=== PATIENT | male | born 1980 | race Caucasian/White ===

== ENCOUNTER 2016-11-05 13:57 | Emergency (ER) | payer SELFPAY ==
[~2016-11-05] VITALS: Ht 157.5 cm; Wt 65.0 kg
[2016-11-05 18:11] VITALS: Ht 157.5 cm; Wt 65.0 kg
== END 2016-11-05 19:23 | disposition left against medical advice (07) ==
LOC: FTE 13:57
DX: Z53.21 Procedure and treatment not carried out due to patient leaving prior to being seen by health care provider (principal)

== ENCOUNTER 2016-11-06 10:24 | Emergency (ER) | END 2016-11-06 12:43 | disposition left against medical advice (07) | DX: R10.13 Epigastric pain (principal); F17.210 Nicotine dependence, cigarettes, uncomplicated ==